=== PATIENT | female | born 1960 | race Asian ===

== ENCOUNTER 2020-11-18 15:11 | Outpatient (CLI) | payer OTHER ==
--- NOTE | 2020-11-19 12:10 | Mammography Report ---
BILATERAL DIGITAL SCREENING MAMMOGRAM 3D/2D: 11/18/2020 CLINICAL: Routine screening. Comparison is made to exam dated: 04/01/2015 mammogram - [facility]. There are sca ttered fibroglandular elements in both breasts. There is a 0.6 cm oval focal asymmetry with an indistinct margin in the right breast at 11 o'clock mi ddle depth. This is more prominent. No other significant masses, calcifications, or other findings are seen in either breast. IMPRESSION: INCOMPLETE: NEEDS ADDITIONAL IMAGING EVALUATION The 0.6 cm oval focal asymmetry in the right breast is indeterminate. Additional views with possible ultrasound are recommended. This exam was interpreted at Station ID: [id number]. NOTE: For mammograms, a report in lay terms will be sent to the patient. Approximately 15% of breast malignancies will not be visualized mammographically. In the management of a palpable breast mass, a negative mammogram must not discourage biopsy of a clinically suspicious lesion. Electronically Signed By: Seth Bello M.D. slc/:11/18/2020 16:16:49 ACR BI-RADS Category 0: Incomplete 3340F PARENCHYMAL PATTERN: (A) - The breast(s) demonstrate(s) scattered fibroglandular densities. BI-RADS CATEGORY: (0) - 0 Mammo and [place] [id number] Immediate follow-up LATERALITY: (B)
== END 2020-11-18 15:12 | disposition home or self-care (01) ==
LOC: DI.N 15:11
DX: Z12.31 Encounter for screening mammogram for malignant neoplasm of breast (principal); R92.8 Other abnormal and inconclusive findings on diagnostic imaging of breast

== ENCOUNTER 2020-12-20 11:13 | Outpatient (CLI) | payer OTHER ==
--- NOTE | 2020-12-23 11:44 | Ultrasound Report ---
LIMITED ULTRASOUND OF RIGHT BREAST: 12/20/2020 CLINICAL: Short term follow up of the right breast. No prior exams were available for comparison. Color flow ultrasound of the right breast 11 o'clock region was performed. Parr scale images of the real-time examination were reviewed. There is a benign 0.5 cm x 0.4 cm lymph node in the right breast at 11 o'clock posterior depth 6 cm f rom the nipple. This correlates with mammography findings. IMPRESSION: BENIGN There is no sonographic evidence of malignancy. The 0.5 cm x 0.4 cm lymph node in the right breast is benign. A 1 year screening mammogram is recommended. This exam was interpreted at Station ID: [id number]. Electronically Signed By: Troy Freeman acr/:12/20/2020 12:34:56 Ultrasound BI-RADS: 2 Benign BI-RADS CATEGORY: (2) - 2 RECOMMENDATION: (ANNUAL) - Recommend routine annual screening mammography. [id number] 1 year screening LATERALITY: (B)
--- NOTE | 2020-12-23 11:44 | Mammography Report ---
UNILATERAL RIGHT DIGITAL DIAGNOSTIC MAMMOGRAM 3D/2D: 12/20/2020 CLINICAL: Patient returns today to evaluate a focal asymmetry in the right breast. Comparison is made to exams dated: 11/18/2020 mammogram, 04/01/2015 mammogram, 12/02/2009 mammogram, an d 10/23/2008 mammogram - [facility]. There are scattered fibroglandular elements in right breast. There is a mass in the right breast seen on the craniocaudal view only. There also is a 0.6 cm oval focal asymmetry with an indistinct margin in the right breast at 11 o'damaris ck middle depth. This is seen in additional views. No other significant masses or calcifications are seen in the breast. IMPRESSION: INCOMPLETE: NEEDS ADDITIONAL IMAGING EVALUATION The 0.6 cm oval focal asymmetry in the right breast at 11 o'clock middle depth is indeterminate. An ultrasound is recommended. This exam was interpreted at Station ID: [id number]. NOTE: For mammograms, a report in lay terms will be sent to the patient. Approximately 15% of breast malignancies will not be visualized mammographically. In the management of a palpable breast mass, a negative mammogram must not discourage biopsy of a clinically suspicious lesion. Electronically Signed By: Troy Freeman acr/:12/20/2020 12:09:20 ACR BI-RADS Category 0: Incomplete 3340F PARENCHYMAL PATTERN: (A) - The breast(s) demonstrate(s) scattered fibroglandular densities. BI-RADS CATEGORY: (0) - 0 Ultrasound [id number] Immediate follow-up LATERALITY: (B)
== END 2020-12-20 11:14 | disposition home or self-care (01) ==
LOC: DI 11:13
PROVIDERS: ATTEND Nurse Practitioner Family
DX: R92.2 Inconclusive mammogram (principal)

== ENCOUNTER 2021-04-28 10:00 | Outpatient (CLI) | payer OTHER ==
--- NOTE | 2021-04-28 12:36 | XRAY Report ---
PROCEDURE: Finger(s) RT INDICATIONS: RIGHT FINGER PAIN TECHNIQUE: AP hand, 2 views of the second finger(s) acquired. COMPARISON: None FINDINGS: Bones: No fractures or dislocations. Osteoarthritic changes are noted in second PIP and DIP joints. No gross bony erosion is seen. No suspicious bony lesions. Soft tissues: No suspicious soft tissue calcifications. IMPRESSION: Second digit osteoarthritis as above. No fracture or dislocation. No gross bony erosion. Reviewed by: Ignacio Askew MD on 04/28/2021 12:35 PM PDT Approved by: Ignacio Askew MD on 04/28/2021 12:35 PM PDT Station ID: [id number]
== END 2021-04-28 23:59 ==
LOC: DI.N 10:00
PROVIDERS: ATTEND Physician Assistant
DX: M19.041 Primary osteoarthritis, right hand (principal)

== ENCOUNTER 2022-11-12 12:38 | Outpatient (CLI) | payer OTHER ==
--- NOTE | 2022-11-12 16:33 | MRI Report ---
PROCEDURE: KNEE WO - LT INDICATIONS: LEFT KNEE PAIN TECHNIQUE: Noncontrast sagittal PD fast spin echo and T2 fast spin echo with fat saturation, sagittal 3-D gradie nt sequence with fat saturation; coronal T1 spin echo and PD fast spin echo with fat saturation, and axial PD fast spin echo with fat saturation through the knee. COMPARISON: None. FINDINGS: Image quality: Excellent. Menisci: Linear horizontal high T2 signal intensity as well as amorphous high signal intensity within the inner, middle, peripheral thirds of the medial meniscal body and posterior horn, demonstrating i nferior articular surface extension, indicating complex tearing. Lateral meniscus is intact. Cruciate ligaments: The anterior and posterior cruciate ligaments appear intact. Medial structures: The medial collateral ligament appears intact. Small amount of fluid deep to the medial collateral ligament. Visualized portions of the pes anserinus tendons appear normal. No abnor mal bursal fluid. Lateral structures: The lateral collateral ligament, long and short heads of the biceps femoris tend on appear intact. The popliteus tendon appears normally. Iliotibial band appears normal. Anterior structures: The quadriceps and patellar tendons appear intact. Mild T2 signal elevation wit hin the quadriceps and patellar tendons at the patellar insertion sites. Patellar alignment is normal . No femoral trochlear dysplasia or ventral trochlear prominence. No edema in the infrapatellar fat pad. Bones and cartilage: No bone marrow contusions or fractures. Mild subchondral degenerative marrow ed mark within the anterior weightbearing and posterior nonweightbearing aspect of the medial femoral con dyle as well as the mid weightbearing aspect of the medial tibial plateau. There is mild tricompartme ntal periarticular osteophyte formation. Severe articular cartilage loss diffusely overlies the weigh tbearing aspects of the medial femoral condyle and medial tibial plateau. Joint space: There is a moderate knee joint effusion and a small ganglion cyst along the popliteus. No Marcial's cyst. Normal appearing synovial plicae are incidentally noted. IMPRESSION: 1. Tricompartmental osteoarthritis with associated articular cartilage loss. 2. Medial meniscal tearing. 3. Mild quadriceps and patellar tendinopathy. 4. Medial collateral ligament bursitis. 5. Knee joint effusion. Reviewed by: Rakel Kwong MD on 11/12/2022 4:31 PM PDT Approved by: Rakel Kwong MD on 11/12/2022 4:31 PM PDT Station ID: [id number]
== END 2022-11-12 12:39 | disposition home or self-care (01) ==
LOC: DI 12:38
PROVIDERS: ATTEND Family Medicine
DX: M17.12 Unilateral primary osteoarthritis, left knee (principal); S83.242A Other tear of medial meniscus, current injury, left knee, initial encounter; M25.462 Effusion, left knee; M71.9 Bursopathy, unspecified; M67.962 Unspecified disorder of synovium and tendon, left lower leg